=== PATIENT | female | born 1975 | race American Indian/Alaskan Native ===

== ENCOUNTER 2022-02-04 08:25 | Emergency (ER) | payer SELFPAY ==
[2022-02-04 09:31] LABS: Bacteria,Urine 1+ /HPF (Negative); Bilirubin,Urine NEG (Negative); Blood,Urine MOD (Negative); Color,Urine Yellow (Yellow); Mucus,Urine 2+ /HPF; Urobilinogen,Urine < 2.0 mg/dL (<2.0)
--- NOTE | 2022-02-04 12:04 | Emergency Department Report ---
ED Female HPI - General Chief complaint: Urogenital-Female Stated complaint: UTI/ YEAST INFECTION Source: patient Mode of arrival: Ambulatory Limitations: No Limitations - History of Present Illness Initial comments: 46 y/o female presents to the ED complaining frequent urination, dysuria and possible yeast infection. Patient states that she took at home test for yeast infection and showed that she was had a yeast infection and patient states she took Monistat [id number]. Patient denies any fever chills or abdominal pain at present. Patient denies any chest pain shortness of breath at present. No acute distress noted .No ill appearance noted MD Complaint: dysuria Onset/Timin Are you Now?: No Associated Symptoms: vaginal discharge - Related Data Sexually active: Yes Previous Rx's Medication Instructions Recorded Last Taken Type Fluconazole [Diflucan TAB] 200 mg PO QDAY 2 Days #2 tablet 02/04/22 Unknown Rx Hyoscyamine Subl [Levsin Sl 0.125 0.125 mg SL Q4HR PRN 5 Days #20 02/04/22 Unknown Rx TAB] tablet Sulfamethoxazole/Trimethoprim 1 each PO BID 10 Days #20 tab 02/04/22 Unknown Rx [Bactrim DS TAB] Allergies Allergy/AdvReac Type Severity Reaction Status Date / Time No Known Allergies Allergy Unverified 02/04/22 08:40 ED Review of Systems ROS: Stated complaint: UTI/ YEAST INFECTION Other details as noted in HPI Constitutional: denies: chills, fever Eyes: denies: eye pain, eye discharge, vision change ENT: denies: ear pain, throat pain Respiratory: denies: cough, shortness of breath, wheezing Cardiovascular: denies: chest pain, palpitations Endocrine: no symptoms reported Gastrointestinal: denies: abdominal pain, nausea, diarrhea Genitourinary: urgency, dysuria, frequency. denies: discharge Musculoskeletal: denies: back pain, joint swelling, arthralgia Skin: denies: rash, lesions Neurological: denies: headache, weakness, paresthesias Psychiatric: denies: anxiety, depression Hematological/Lymphatic: denies: easy bleeding, easy bruising ED Past Medical Hx - Medications Home Medications: Home Medications Medication Instructions Recorded Confirmed Last Taken Type Fluconazole [Diflucan TAB] 200 mg PO QDAY 2 Days #2 tablet 02/04/22 Unknown Rx Hyoscyamine Subl [Levsin Sl 0.125 0.125 mg SL Q4HR PRN 5 Days #20 02/04/22 Unknown Rx TAB] tablet Sulfamethoxazole/Trimethoprim 1 each PO BID 10 Days #20 tab 02/04/22 Unknown Rx [Bactrim DS TAB] ED Physical Exam - General Limitations: No Limitations General appearance: alert, in no apparent distress - Head Head exam: Present: atraumatic, normocephalic - Eye Eye exam: Present: normal appearance - ENT ENT exam: Present: mucous membranes moist - Neck Neck exam: Present: normal inspection - Respiratory Respiratory exam: Present: normal lung sounds bilaterally. Absent: respiratory distress - Cardiovascular Cardiovascular Exam: Present: regular rate, normal rhythm. Absent: systolic murmur, diastolic murmur, rubs, gallop - GI/Abdominal GI/Abdominal exam: Present: soft, normal bowel sounds - Extremities Exam Extremities exam: Present: normal inspection - Back Exam Back exam: Present: normal inspection - Neurological Exam Neurological exam: Present: alert, oriented X3 - Psychiatric Psychiatric exam: Present: normal affect, normal mood - Skin Skin exam: Present: warm, dry, intact, normal color. Absent: rash ED Course Vital Signs 02/04/22 02/04/22 08:41 12:49 Temperature 97.8 F Pulse Rate 87 70 Respiratory 18 16 Rate Blood Pressure 179/93 130/72 [Right] O2 Sat by Pulse 100 100 Oximetry ED Medical Decision Making - Medical Decision Making 46 y/o female presents to the ED complaining frequent urination, dysuria and possible yeast infection x4 days. Patient states that she took at home home test for yeast infection and showed that she was had a yeast infection and patient states she took Monistat [id number]. Patient denies any fever chills or abdominal pain at present. Patient denies any chest pain shortness of breath at present. No acute distress noted .No ill appearance noted. Physical examination unremarkable. Rechecked the patient is resting quietly quietly and comfortable and feeling better. I discussed the results of diagnostic study, my clinical impression and the plan for further treatment with the patient. Patient agrees with plan and discharge at this present time. All question addressed. I have given the patient instruction regarding a diagnosis ,expectation ,follow- up and return precaution. I explained to the patient that emergent condition may arise and to return to the ED for new worsen and any new persisting condition. I have explained the importance of following up with the primary care physician or referral physician listed below has instructed. The patient verbalized understanding of discharge instruction. Abnormal Lab Results 02/04/22 Unknown Urine Color Yellow Urine Turbidity Cloudy Urine pH 6.0 Ur Specific [place] 1.014 Urine Protein 30 mg/dl Urine Glucose (UA) Neg Urine Ketones Neg Urine Blood Mod Urine Nitrite Neg Urine Bilirubin Neg Urine Urobilinogen < 2.0 Ur Leukocyte Esterase Lg Urine WBC (Auto) 158.0 H Urine RBC (Auto) 25.0 U Epithel Cells (Auto) 13.0 Urine Bacteria (Auto) 1+ Urine Mucus 2+ Critical care attestation.: If time is entered above; I have spent that time in minutes in the direct care of this critically ill patient, excluding procedure time. ED Disposition Clinical Impression: Acute urinary tract infection, Yeast infection Disposition: HOME / SELF CARE / HOMELESS Is pt being admited?: No Does the pt Need Aspirin: No Condition: Stable Instructions: Vaginal Yeast Infection, Adult, Urinary Tract Infection, Adult, [id number] Additional Instructions: Take medication as prescribed Return to the ED for any worsening symptom Prescriptions: Sulfamethoxazole/Trimethoprim [Bactrim DS TAB] 1 each PO BID 10 Days #20 tab Fluconazole [Diflucan TAB] 200 mg PO QDAY 2 Days #2 tablet Hyoscyamine Subl [Levsin Sl 0.125 TAB] 0.125 mg SL Q4HR PRN 5 Days #20 tablet PRN Reason: Spasms Referrals: PRIMARY CARE, [Primary Care Provider] - 3-5 Days [facility] [Provider Group] - 3-5 Days Time of Disposition: 12:13
[2022-02-04 12:50] VITALS: BP 130/72
== END 2022-02-04 12:50 | disposition home or self-care (01) ==
LOC: ED 08:25
DX: N39.0 Urinary tract infection, site not specified (principal)
CPT/HCPCS: 81001; 99283